=== PATIENT | female | born 1970 | race Caucasian/White ===

== ENCOUNTER 2017-04-19 16:46 | Emergency (ER) | payer OTHER ==
[~2017-04-19] VITALS: Ht 157.5 cm; Wt 51.0 kg
[2017-04-19 18:15] LABS: CHLORIDE 105 mEq/L (98-107); PROTHROMBIN TIME 10.6 sec
[2017-04-19 18:20] LABS: CARBON DIOXIDE 28 mEq/L (21-32); EOSINOPHILS % 3.1 % (0.0-5.0); HEMATOCRIT. 39.9 % (36.0-48.0); HEMOGLOBIN. 13.5 g/dL (12.0-16.0); LYMPHOCYTES % 27.9 % (20.0-50.0); MEAN CORPUSCULAR HEMOGLOBIN 27.1 pg (28.0-32.0); MEAN CORPUSCULAR VOLUME 80.1 fL (81.0-99.0); MEAN PLATELET VOLUME 9.4 fl (7.4-10.4); MONOCYTES % 6.5 % (2.0-8.0); NEUTROPHILS % 61.5 % (40.0-76.0); PLATELET 267 x1000/uL (130-400); RED BLOOD CELL COUNT 4.98 mill/uL (4.2-5.4); RED CELL DISTRIBUTION WIDTH 14.1 % (11.6-14.6)
[2017-04-19 18:25] LABS: TROPONIN I < 0.02 ng/mL (0.00-0.04)
[2017-04-19 18:33] VITALS: BP 121/81
[2017-04-19 18:33] LABS: HCG SCREEN NEGATIVE
[2017-04-19] MEDS ORDERED: FLUORESCEIN SODIUM 1MG/STRIP OP ONE (19:30)
[2017-04-19] MEDS ORDERED: TETRACAINE 0.5% OPHTH DROPS 4ML OP ONE (19:30)
[2017-04-19 19:34] LABS: CLARITY URINE TURBID (CLEAR); COLOR URINE YELLOW (YELLOW); GLUCOSE URINE NEGATIVE (NEGATIVE); KETONES URINE NEGATIVE (NEGATIVE); LEUKOCYTE ESTERASE URINE NEGATIVE (NEGATIVE); NITRITE URINE NEGATIVE (NEGATIVE); OCCULT BLOOD URINE NEGATIVE (NEGATIVE); PROTEIN URINE NEGATIVE (NEGATIVE); SPECIFIC GRAVITY URINE 1.016 (1.005-1.030); UROBILINOGEN URINE 0.2 E.U./dL (0.2-1.0)
[2017-04-19] MEDS ORDERED: IBUPROFEN 400MG TABLET PO ONE (20:45)
== END 2017-04-19 21:31 | disposition home or self-care (01) ==
LOC: ER 17:40
DX: G51.0 Bell's palsy (principal)
CPT/HCPCS: 36415; 70450; 80053; 81001; 83605; 84484; 84703; 85025; 85610; 93005; 99285; Z7610

== ENCOUNTER 2021-08-11 18:11 | Emergency (ER) | payer OTHER ==
[~2021-08-11] VITALS: Ht 160 cm; Wt 55.0 kg
[2021-08-11] MEDS ORDERED: KETOROLAC 60MG/2ML VIAL IM ONE (21:30)
[2021-08-11] MEDS ORDERED: BACITRACIN ZINC OINT UDPKT TOP ONE (21:30)
[2021-08-11] MEDS ORDERED: TETANUS, DIPHTHERIA, PERTUSSIS VAC/PF 0.5ML (>10YR OLD) IM ONE (21:30)
[2021-08-11 22:46] VITALS: BP 130/76
[2021-08-11] MEDS ORDERED: IBUP-2029 MT (22:51)
[2021-08-11] MEDS ORDERED: TRAM50TA MT (22:51)
== END 2021-08-11 23:35 | disposition home or self-care (01) ==
LOC: ER 18:11
DX: S09.8XXA Other specified injuries of head, initial encounter (principal); S80.01XA Contusion of right knee, initial encounter; S49.81XA Other specified injuries of right shoulder and upper arm, initial encounter; S80.11XA Contusion of right lower leg, initial encounter; S16.1XXA Strain of muscle, fascia and tendon at neck level, initial encounter; M25.551 Pain in right hip; I10 Essential (primary) hypertension; V18.0XXA Pedal cycle driver injured in noncollision transport accident in nontraffic accident, initial encounter; Y93.55 Activity, bike riding; Y92.488 Other paved roadways as the place of occurrence of the external cause
CPT/HCPCS: 70450; 72125; 73030; 73502; 73552; 73562; 90471; 90715; 96372; 99284; J1885